=== PATIENT | male | born 2000 | race African-American/Black ===

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

== ENCOUNTER 2022-03-22 07:27 | Emergency (ER) | payer SELFPAY ==
[2022-03-22 07:35] VITALS: BP 111/75; PULSE 63; RESP 18; TEMP 98.2; BMI 18.4
[2022-03-22] MEDS ORDERED: FLUORESCEIN NA 1 EA STRIP OU ONE (08:59)
[2022-03-22] MEDS ORDERED: TETRACAINE 0.5% OPHTH SOLN 2 ML BOTTLE OD ONE (09:00)
[2022-03-22] MEDS ORDERED: FLUORESCEIN NA 1 EA STRIP ONE (09:04)
[2022-03-22] MEDS ORDERED: TETRACAINE 0.5% OPHTH SOLN 2 ML BOTTLE ONE (09:05)
== END 2022-03-22 09:56 | disposition home or self-care (01) ==
LOC: JER 07:27 → JERFT 07:27
DX: S05.02XA Injury of conjunctiva and corneal abrasion without foreign body, left eye, initial encounter (principal); Y99.8 Other external cause status
CPT/HCPCS: 99283-25